=== PATIENT | male | born 1985 | race Caucasian/White ===

== ENCOUNTER 2021-11-17 08:41 | Outpatient (CLI) | payer OTHER | END 2021-11-17 08:42 | disposition home or self-care (01) | LOC: SCSMRI 08:41 | PROVIDERS: ATTEND Family Medicine | DX: M51.16 Intervertebral disc disorders with radiculopathy, lumbar region (principal); M48.061 Spinal stenosis, lumbar region without neurogenic claudication | CPT/HCPCS: 72148 ==

== ENCOUNTER 2022-06-09 16:49 | Outpatient (CLI) | payer OTHER ==
[2022-06-09 17:27] LABS: Hemoglobin 15.2 g/dL (13.5-17.5); Mean Corpuscular HGB CONC 34.8 g/dL (32.0-36.0); Mean Corpuscular Hemoglobin 32.8 pg (27.0-33.0); Mean Corpuscular Volume 94.2 fl (81.2-95.1); Mean Platelet Volume 10.3 fl (7.4-10.4); Platelet Count 257 10x3/uL (150-450); RBC Distribution Width 11.9 % (11.5-14.5); Red Blood Cell (RBC) Count 4.64 10x6/uL (4.32-5.72); White Blood Cell (WBC) Count 6.2 10x3/uL (3.5-10.5)
[2022-06-09 17:46] LABS: PTT 26.2 sec (22.0-33.0); Prothrombin Time 10.6 sec (9.5-12.1)
[2022-06-09 17:48] LABS: Anion Gap 13 mmol/L (10-20); BUN (Urea Nitrogen) 14 mg/dL (8.9-20.6); Calc. Creatinine Clearance 0 mL/min (70-130); Calcium 9.2 mg/dL (7.8-10.44); Carbon Dioxide 26 mmol/L (22-29); Chloride 105 mmol/L (98-107); Estimated GFR 83; Glucose 106 mg/dL (70-105); Potassium 4.3 mmol/L (3.5-5.1); Sodium 140 mmol/L (136-145)
== END 2022-06-09 16:50 | disposition home or self-care (01) ==
LOC: LABBT 16:49
PROVIDERS: ATTEND Surgery
DX: Z01.818 Encounter for other preprocedural examination (principal); M51.16 Intervertebral disc disorders with radiculopathy, lumbar region
CPT/HCPCS: 80048; 85027; 85610; 85730; 93005; 93010

== ENCOUNTER 2022-06-14 10:03 | Observation (INO) | payer OTHER ==
[2022-06-10 10:50] VITALS: BMI 33.5
[2022-06-14] MEDS ORDERED: Levofloxacin 500 mg/D5W 100 ml Premix Bag ONE (10:41)
[2022-06-14] MEDS ORDERED: Midazolam HCl 2 mg/2 ml Vial ONE (11:17)
[2022-06-14] MEDS ORDERED: Acetaminophen 500 MG TAB ONE (11:18)
[2022-06-14] MEDS ORDERED: Vancomycin 1 GM VIAL ONE (12:11)
[2022-06-14] MEDS ORDERED: Thrombin 5000 UNITS/5 ML VIAL ONE (12:11)
[2022-06-14] MEDS ORDERED: fentaNYL PF 100 MCG/2 ML SYRINGE ONE (12:37)
[2022-06-14] MEDS ORDERED: Clindamycin/D5W 900 mg/50 ml Premix Bag ONE (12:39)
[2022-06-14] MEDS ORDERED: NEOSTIGMINE 3 MG/3 ML SYR 3 MG/3 ML SYRINGE ONE (13:11)
[2022-06-14] MEDS ORDERED: Glycopyrrolate 0.2 MG/ML 5 ML SYRINGE ONE (13:11)
[2022-06-14] MEDS ORDERED: Dexamethasone 20 MG/5 ML VIAL ONE (13:11)
[2022-06-14] MEDS ORDERED: Rocuronium Bromide 10 MG/ML (10ML VIAL) ONE (13:11)
[2022-06-14] MEDS ORDERED: PROPOFOL 200 MG/20 ML VIAL ONE (13:11)
[2022-06-14] MEDS ORDERED: Lidocaine 1% PF 5 ML VIAL ONE (13:11)
[2022-06-14] MEDS ORDERED: Ondansetron PF 4 MG/2 ML Vial ONE (13:11)
[2022-06-14] MEDS ORDERED: HYDROcodone/Acetaminophen 7.5/325 mg Tablet PO PRN (15:03)
[2022-06-14] MEDS ORDERED: diphenhydrAMINE 25 MG CAP PO PRN (15:03)
[2022-06-14] MEDS ORDERED: Ondansetron PF 4 MG/2 ML Vial IVP PRN (15:03)
[2022-06-14] MEDS ORDERED: Acetaminophen/Codeine 30-300mg Tablet PO PRN (15:03)
[2022-06-14] MEDS ORDERED: Acetaminophen 325 MG TAB PO PRN (15:03)
[2022-06-14] MEDS ORDERED: traMADol HCl 50 MG TAB PO PRN (15:03)
[2022-06-14] MEDS ORDERED: Morphine 2 MG/ML VIAL SLOW IVP PRN (15:03)
[2022-06-14] MEDS ORDERED: Fentanyl 100 MCG/2 ML VIAL ONE (15:26)
[2022-06-14] MEDS ORDERED: Ketorolac Tromethamine 30 MG/ML VIAL ONE (16:50)
[2022-06-14] MEDS: Ketorolac Tromethamine 30 MG/ML VIAL IVP PRN ×2 (16:52→23:43)
[2022-06-14] MEDS: tiZANidine HCl 4 MG TAB PO PRN (18:32)
[2022-06-14] MEDS: Sodium Chloride 0.9% 1,000 ML IV SCH (20:29)
[2022-06-14] MEDS: Clindamycin/D5W 900 MG in Premix Bag 1 BAG IVPB SCH (20:29)
[2022-06-15] MEDS: Sodium Chloride 0.9% 1,000 ML IV SCH (04:49)
[2022-06-15] MEDS: Clindamycin/D5W 900 MG in Premix Bag 1 BAG IVPB SCH (05:27)
[2022-06-15] MEDS: Ketorolac Tromethamine 30 MG/ML VIAL IVP PRN (05:27)
[2022-06-15 08:07] VITALS: BP 123/77; TEMP 97.9
[2022-06-15] MEDS: tiZANidine HCl 4 MG TAB PO PRN (10:35)
== END 2022-06-15 10:56 | disposition home or self-care (01) ==
LOC: SDC 10:03 → SJJU 18:08
PROVIDERS: ADMIT Surgery; ATTEND Surgery
PROC: 0SB20ZZ Excision of Lumbar Vertebral Disc, Open Approach (ICD-10-PCS; principal; 2022-06-14)
PROC: 01NB0ZZ Release Lumbar Nerve, Open Approach (ICD-10-PCS; 2022-06-14)
DX: M51.16 Intervertebral disc disorders with radiculopathy, lumbar region (principal); J30.81 Allergic rhinitis due to animal (cat) (dog) hair and dander; E66.9 Obesity, unspecified; Z68.33 Body mass index [BMI] 33.0-33.9, adult; Z86.16 Personal history of COVID-19; Z88.0 Allergy status to penicillin
CPT/HCPCS: J1100; J1885; J1956; J2250; J2405; J2704; J3010; J3370; J3490; J7050

== ENCOUNTER 2022-11-11 09:37 | Outpatient (CLI) | payer OTHER ==
[2022-11-11] MEDS ORDERED: Magnevist 469MG/ML 20 ML VIAL ONE (09:57)
== END 2022-11-11 09:38 | disposition home or self-care (01) ==
LOC: BICMRI 09:37
PROVIDERS: ATTEND Specialist
DX: M51.16 Intervertebral disc disorders with radiculopathy, lumbar region (principal); M47.26 Other spondylosis with radiculopathy, lumbar region; M48.062 Spinal stenosis, lumbar region with neurogenic claudication; Z98.890 Other specified postprocedural states
CPT/HCPCS: 72158; A9579

== ENCOUNTER 2022-12-02 13:06 | Outpatient (CLI) | payer OTHER | END 2022-12-02 13:07 | disposition home or self-care (01) | LOC: BICCT 13:06 | PROVIDERS: ATTEND Surgery | DX: M51.26 Other intervertebral disc displacement, lumbar region (principal); M48.07 Spinal stenosis, lumbosacral region; M47.816 Spondylosis without myelopathy or radiculopathy, lumbar region | CPT/HCPCS: 72120; 72131 ==

== ENCOUNTER 2023-12-27 08:55 | Outpatient (CLI) | payer OTHER ==
[2023-12-27] MEDS ORDERED: Magnevist 469MG/ML 20 ML VIAL ONE (09:15)
== END 2023-12-27 08:56 | disposition home or self-care (01) ==
LOC: BICMRI 08:55
PROVIDERS: ATTEND Surgery
DX: M51.16 Intervertebral disc disorders with radiculopathy, lumbar region (principal)
CPT/HCPCS: 72158; A9579